=== PATIENT | female | born 1975 | race African-American/Black ===

== ENCOUNTER 2024-10-30 01:01 | Emergency (ER) | payer MEDICAID ==
[~2024-10-30] VITALS: Ht 165.1 cm; Wt 65.0 kg
[2024-10-30 01:03] VITALS: O2SAT 100
[2024-10-30 01:54] VITALS: BP 114/81; PULSE 83; RESP 16; TEMP 36.6; O2SAT 100
== END 2024-10-30 01:56 | disposition home or self-care (01) ==
LOC: ER 01:01
DX: T30.4 Corrosion of unspecified body region, unspecified degree (principal); Y93.89 Activity, other specified; Y92.89 Other specified places as the place of occurrence of the external cause; Y99.8 Other external cause status
CPT/HCPCS: 99283